=== PATIENT | female | born 1995 | race Caucasian/White ===

== ENCOUNTER 2023-02-10 13:11 | Emergency (ER) | payer SELFPAY ==
[~2023-02-10] VITALS: Ht 165.1 cm; Wt 68.0 kg
[2023-02-10 13:18] VITALS: BP 121/69; TEMP 98.7; O2SAT 98
[2023-02-10] MEDS ORDERED: AMOX-430 PO (14:40)
== END 2023-02-10 15:15 | disposition home or self-care (01) ==
LOC: ER 13:19
DX: S01.111A Laceration without foreign body of right eyelid and periocular area, initial encounter (principal); Z79.899 Other long term (current) drug therapy; W55.03XA Scratched by cat, initial encounter; Y93.89 Activity, other specified; Y92.89 Other specified places as the place of occurrence of the external cause; Y99.8 Other external cause status